=== PATIENT | male | born 1965 | race Caucasian/White ===

== ENCOUNTER → 2024-11-20 | Outpatient (CLI) | payer BC, SELFPAY ==
[2024-11-20 09:01] LABS: Cardiac Risk Estimate 5.3 RATIO (4.0-6.7); Cholesterol 212 mg/dL (132-200); HDL Cholesterol 40 mg/dL (40-60); LDL Cholesterol,Calculated 146 mg/dL (0-130); Triglycerides 131 mg/dL (30-150)
== END | disposition home or self-care (01) ==
LOC: COPL 07:11
PROVIDERS: PCP Family Medicine
DX: E78.5 Hyperlipidemia, unspecified (principal)
CPT/HCPCS: 36415; 80061